=== PATIENT | female | born 1970 | race African-American/Black ===

== ENCOUNTER 2021-04-19 04:57 | Day surgery (SDC) | payer BC ==
[2021-04-17 16:11] VITALS: BMI 29.2
[2021-04-19 09:22] VITALS: TEMP 98.2
[2021-04-19 12:33] VITALS: BP 158/78; PULSE 65
== END 2021-04-19 10:16 | disposition home or self-care (01) ==
LOC: JASU-ENDO 04:57
PROVIDERS: ATTEND Internal Medicine Gastroenterology
PROC: 0DJD8ZZ Inspection of Lower Intestinal Tract, Via Natural or Artificial Opening Endoscopic (ICD-10-PCS; principal; 2021-04-19 08:30)
DX: Z12.11 Encounter for screening for malignant neoplasm of colon (principal)

== ENCOUNTER 2022-08-26 10:10 | Day surgery (SDC) | payer SELFPAY ==
[2022-08-22 10:58] VITALS: BMI 31.4
[2022-08-26] MEDS ORDERED: EPINEPHrine/PF 1 MG/1 ML (1:1,000) AMPULE ONE (10:18)
[2022-08-26] MEDS ORDERED: BACITRACIN 15 GM TUBE TOPICAL OINTMENT ONE (10:19)
[2022-08-26] MEDS ORDERED: BUPIVACAINE HCL/PF 2.5 MG/ML - 30 ML VIAL IJ ONE (10:19)
[2022-08-26] MEDS ORDERED: LIDOCAINE HCL 2% (20ML MULTI-DOSE VIAL) ONE (10:20)
[2022-08-26] MEDS ORDERED: LIDOCAINE HCL 1%, 10 MG/ML (20ML VIAL) ONE ×3 (10:20→12:00)
[2022-08-26] MEDS ORDERED: DEXAMETHASONE SOD PHOSPHATE 4 MG/1 ML VIAL ONE ×2 (10:28→11:33)
[2022-08-26] MEDS ORDERED: PROPOFOL 20 ML ONE ×2 (10:46→14:41)
[2022-08-26] MEDS ORDERED: MIDAZOLAM HCL 2 MG/2 ML SINGLE DOSE VIAL ONE (10:46)
[2022-08-26] MEDS ORDERED: SUCCINYLCHOLINE CHLORIDE 200 MG/10 ML SYRINGE ONE (10:46)
[2022-08-26] MEDS ORDERED: HEPARIN NA (PORCINE) 5,000 UNITS/ML 1ML VIAL ONE (11:06)
[2022-08-26] MEDS ORDERED: ceFAZolin SODIUM 1 GM VIAL ONE ×2 (11:33→15:16)
[2022-08-26] MEDS ORDERED: ONDANSETRON 4 MG/2 ML VIAL ONE ×2 (11:33→14:09)
[2022-08-26] MEDS ORDERED: VASOPRESSIN 20 UNITS/ML VIAL IV ONE (11:52)
[2022-08-26] MEDS ORDERED: ROCURONIUM BROMIDE 50 MG/5 ML SYRINGE ONE ×2 (12:33→14:11)
[2022-08-26] MEDS ORDERED: PHENYLEPHRINE HCL 10 MG/1 ML SINGLE DOSE VIAL ONE (14:04)
[2022-08-26] MEDS ORDERED: SUGAMMADEX SODIUM 200 MG/2 ML VIAL ONE (14:10)
[2022-08-26] MEDS ORDERED: HYDROmorphone HCL/PF 1 MG/ML VIAL ONE (14:16)
[2022-08-26] MEDS ORDERED: ACETAMINOPHEN INJECTION 100 ML IVPB ONE (15:58)
[2022-08-26] MEDS ORDERED: oxyCODONE HCL 5 MG TABLET PO PRN (16:25)
[2022-08-26] MEDS ORDERED: ONDANSETRON 4 MG/2 ML VIAL IVPB PRN (16:25)
[2022-08-26] MEDS ORDERED: ONDANSETRON 4 MG/2 ML VIAL IVPUSH PRN (16:28)
[2022-08-26] MEDS ORDERED: LACTATED RINGERS SOLUTION 1,000 ML IV SCH ×2 (16:30)
[2022-08-26 17:29] LABS: CALCIUM 8.2 mg/dl (8.5-10); CREATININE 1.3 mg/dl (0.55-1.3)
[2022-08-26 18:21] VITALS: RESP 18
[2022-08-27] MEDS: CEFAZOLIN 1 GM in DEXTROSE 5%-WATER - 50 ML IVPB SCH ×3 (02:08→09:40)
[2022-08-27] MEDS ORDERED: HEPARIN NA (PORCINE) 5,000 UNITS/ML 1ML VIAL SQ SCH (08:00)
[2022-08-27 08:55] VITALS: BP 116/57; PULSE 70; TEMP 99.4
[2022-08-27] MEDS ORDERED: ATORVASTATIN CA 20 MG TABLET (FP) PO SCH (10:00)
[2022-08-27] MEDS ORDERED: HYDROCHLOROTHIAZIDE 25 MG TABLET (FP) PO SCH (10:00)
[2022-08-27] MEDS ORDERED: LOSARTAN POTASSIUM 50 MG TABLET PO SCH (10:00)
[2022-08-27] MEDS ORDERED: CALCIUM CARBONATE 650 MG TABLET PO SCH (10:00)
[2022-08-27] MEDS ORDERED: amLODIPine BESYLATE 5 MG TABLET (FP) PO SCH (10:00)
[2022-08-27] MEDS ORDERED: PATIENT'S OWN MEDICATION (NON-FORMULARY) (Losartan/Hydrochlorothiazide [Losartan-Hctz 100- PO SCH (10:00)
== END 2022-08-27 13:05 | disposition home or self-care (01) ==
LOC: FASUSAT 10:10 → FM/S 17:52 → FASUSAT 08-27 13:05
PROVIDERS: ATTEND Plastic Surgery
PROC: 0J080ZZ Alteration of Abdomen Subcutaneous Tissue and Fascia, Open Approach (ICD-10-PCS; principal; 2022-08-26 11:53)
PROC: 0J083ZZ Alteration of Abdomen Subcutaneous Tissue and Fascia, Percutaneous Approach (ICD-10-PCS; 2022-08-26 11:53)
DX: M95.8 Other specified acquired deformities of musculoskeletal system (principal)
CPT/HCPCS: 36415; 80048; 94760; J1644

== ENCOUNTER 2023-08-30 15:23 | Emergency (ER) | payer OTHER, BC ==
[2023-08-30 15:45] VITALS: BP 115/75; PULSE 118; RESP 18; TEMP 98.1; BMI 29.2
[2023-08-30] MEDS ORDERED: ACETAMINOPHEN 500 MG TABLET (FP) PO ONE (16:19)
[2023-08-30] MEDS ORDERED: ACETAMINOPHEN 500 MG TABLET (FP) ONE (16:47)
== END 2023-08-30 18:10 | disposition home or self-care (01) ==
LOC: JER 15:23
DX: M54.2 Cervicalgia (principal); M54.6 Pain in thoracic spine; M62.838 Other muscle spasm; V89.2XXA Person injured in unspecified motor-vehicle accident, traffic, initial encounter; Y93.I9 Activity, other involving external motion; Y92.9 Unspecified place or not applicable
CPT/HCPCS: 71046-TC-FY; 72040-TC; 72125-TC; 93005; 93010; 99285-25